=== PATIENT | female | born 1990 | race Caucasian/White ===

== ENCOUNTER 2018-09-07 08:22 | Emergency (ER) | payer SELFPAY ==
[2018-09-07 10:36] LABS: Urine Blood NEGATIVE (NEG); Urine Glucose NEGATIVE (NEG); Urine Protein NEGATIVE (NEG)
--- NOTE | 2018-09-07 10:47 | RAD REPORT ---
EXAM DESCRIPTION: CT - Head Brain Wo Cont - 09/07/2018 10:15 am CLINICAL HISTORY: Migraine headache history, numbness and tingling on the top and back of head COMPARISON: None. TECHNIQUE: Axial 5 mm thick images of the head were obtained without IV contrast. All CT scans are performed using dose optimization technique as appropriate and may include automated exposure control or mA/KV adjustment according to patient size. FINDINGS: No intracranial hemorrhage, mass, edema or shift of mid-line structures. No acute infarcti on changes seen. No abnormal extra-axial fluid collections. Ventricles are normal. Mastoid air cells and visualized portions of the paranasal sinuses are clear. No acute bony findings. IMPRESSION: Negative non-contrast CT head examination.
--- NOTE | 2018-09-07 12:16 | EDPHYS ---
Physician Documentation [facility] Name: Madalyn Aguilar Age: 28 yrs Sex: Female : 1990 Arrival Date: 09/07/2018 Time: 08:25 Bed 23 Private MD: ED Physician Manfred James HPI: 09/07 10:10 This 28 yrs old Female presents to ER via Ambulatory with complaints of Neck pm1 Problem, Dizziness. 10:10 The patient or guardian complains of tenderness, swollen lymph node. pm1 10:10 The symptoms are located on the left lateral aspect of neck. Onset: The pm1 symptoms/episode began/occurred 2 week(s) ago. Context: The problem was sustained at home, The neck injury/problem resulted from Unknown. Associated signs and symptoms: Pertinent positives: headache, Pertinent negatives: chills, fever, nausea, vomiting, weakness. The pain does not radiate. Modifying factors: The symptoms are alleviated by nothing. the symptoms are aggravated by palpation of left lump on neck. history of migraines, left neck lump onset 2 weeks ago. 10:10 No pet exposure. pm1 Historical: - Allergies: 09:11 No Known Allergies; dm5 - Home Meds: 09:11 phentermine 37.5 mg oral cap 1 cap once daily [Active]; omeprazole 20 mg Oral cpDR 1 dm5 cap once daily [Active]; Topamax 50 mg Oral tab 1 tab daily [Active]; - Immunization history:: Flu vaccine is not up to date. - Social history:: Smoking status: Patient/guardian denies using tobacco. - Ebola Screening: : Patient negative for fever greater than or equal to 101.5 degrees Fahrenheit, and additional compatible Ebola Virus Disease symptoms Patient denies exposure to infectious person Patient denies travel to an Ebola-affected area in the 21 days before illness onset No symptoms or risks identified at this time. ROS: 10:10 Constitutional: Negative for fever, chills, and weight loss, Eyes: Negative for injury, pm1 pain, redness, and discharge, ENT: Negative for injury, pain, and discharge. 10:10 Cardiovascular: Negative for chest pain, palpitations, and edema, Respiratory: Negative for shortness of breath, cough, wheezing, and pleuritic chest pain, Abdomen/GI: Negative for abdominal pain, nausea, vomiting, diarrhea, and constipation, Back: Negative for injury and pain, MS/Extremity: Negative for injury and deformity, Skin: Negative for injury, rash, and discoloration. 10:10 Neck: Positive for swollen nodes, Negative for pain with movement, pain at rest, stiffness, tenderness, bony tenderness. 10:10 Neuro: Positive for headache, Negative for numbness, tingling, weakness. Exam: 10:10 Constitutional: This is a well developed, well nourished patient who is awake, alert, pm1 and in no acute distress. Head/Face: Normocephalic, atraumatic. Eyes: Pupils equal round and reactive to light, extra-ocular motions intact. Lids and lashes normal. Conjunctiva and sclera are non-icteric and not injected. Cornea within normal limits. Periorbital areas with no swelling, redness, or edema. ENT: Nares patent. No nasal discharge, no septal abnormalities noted. Tympanic membranes are normal and external auditory canals are clear. Oropharynx with no redness, swelling, or masses, exudates, or evidence of obstruction, uvula midline. Mucous membranes moist. 10:10 Chest/axilla: Normal chest wall appearance and motion. Nontender with no deformity. No lesions are appreciated. Cardiovascular: Regular rate and rhythm with a normal S1 and S2. No gallops, murmurs, or rubs. Normal PMI, no JVD. No pulse deficits. Respiratory: Lungs have equal breath sounds bilaterally, clear to auscultation and percussion. No rales, rhonchi or wheezes noted. No increased work of breathing, no retractions or nasal flaring. Abdomen/GI: Soft, non-tender, with normal bowel sounds. No distension or tympany. No guarding or rebound. No evidence of tenderness throughout. Back: No spinal tenderness. No costovertebral tenderness. Full range of motion. Skin: Warm, dry with normal turgor. Normal color with no rashes, no lesions, and no evidence of cellulitis. MS/ Extremity: Pulses equal, no cyanosis. Neurovascular intact. Full, normal range of motion. Neuro: Awake and alert, GCS 15, oriented to person, place, time, and situation. Cranial nerves II-XII grossly intact. Motor strength 5/5 in all extremities. Sensory grossly intact. Cerebellar exam normal. Normal gait. 10:10 Neck: External neck: is normal, C-spine: appears grossly normal, no vertebral tenderness, no crepitus, ROM/movement: Meningeal signs: Kernig's sign is negative, Brudzinski's sign is negative, nuchal rigidity, is not appreciated, Lymph nodes: lymphadenopathy is appreciated, anterior cervical nodes. Vital Signs: 09:11 BP 148 / 94; Pulse 80; Resp 18; Temp 98.3; Pulse Ox 100% on R/A; Weight 117.93 kg; dm5 Height 5 ft. 4 in. (162.56 cm); Pain 2/10; 10:16 BP 127 / 65; Pulse 84; Resp 16; Pulse Ox 100% on R/A; Pain 2/10; em 09:11 Body Mass Index 44.63 (117.93 kg, 162.56 cm) dm5 MDM: 09:26 Patient medically screened. pm1 12:06 Data reviewed: vital signs. Data interpreted: Pulse oximetry: on room air is 100 %. pm1 Interpretation: normal. Counseling: I had a detailed discussion with the patient and/or guardian regarding: the historical points, exam findings, and any diagnostic results supporting the discharge/admit diagnosis, the need for outpatient follow up, a family practitioner, to return to the emergency department if symptoms worsen or persist or if there are any questions or concerns that arise at home. 09/07 10:09 Order name: Urine Dipstick--Ancillary (enter results); Complete Time: 11:55 eb 09/07 10:09 Order name: Urine --Ancillary (enter results); Complete Time: 11:55 eb 09/07 09:55 Order name: CT Head Brain wo Cont; Complete Time: 11:55 pm1 09/07 09:55 Order name: Urine Dipstick-Ancillary (obtain specimen); Complete Time: 10:12 pm1 09/07 09:55 Order name: Urine Test (obtain specimen); Complete Time: 10:12 pm1 Administered Medications: 12:17 Not Given (Patient Refused): Benadryl 25 mg PO once em 12:17 Not Given (Patient Refused): TORadol 30 mg IVP once em 12:17 Not Given (Patient Refused): Reglan 10 mg IVP once; over 1 to 2 minutes em 12:17 Not Given (Patient Refused): NS 0.9% 1000 ml IV at 1000 ml once em Disposition: 13:56 Co-signature as Attending Physician, Manfred James MD I agree with the assessment and kdr plan of care. Disposition: 09/07/18 12:15 Discharged to Home. Impression: Headache, Localized enlarged lymph nodes - left cervical chain. - Condition is Stable. - Discharge Instructions: Migraine Headache, Lymphadenopathy. - Prescriptions for Keflex 500 mg Oral Capsule - take 1 capsule by ORAL route every 6 hours for 10 days; 40 capsule. - Medication Reconciliation Form, Thank You Letter, Antibiotic Education form. - Follow up: Emergency Department; When: As needed; Reason: Worsening of condition. Follow up: Private Physician; When: 2 - 3 days; Reason: Recheck today's complaints, Continuance of care, Re-evaluation by your physician. - Problem is new. - Symptoms have improved. Signatures: Dispatcher [employer] Penny Casillas, ELVIA RN dm5 Manfred James MD MD [facility] Herve Nielson, STATIONARY FIREMAN STATIONARY FIREMAN em Donavan Cassidy, NODE JS DEVELOPER NODE JS DEVELOPER pm1 Corrections: (The following items were deleted from the chart) 12:19 12:01 IV Saline Lock ordered. pm1 em 12:25 12:15 09/07/2018 12:15 Discharged to Home. Impression: Headache; Localized enlarged em lymph nodes - left cervical chain. Condition is Stable. Forms are Medication Reconciliation Form, Thank You Letter, Antibiotic Education, Prescription Opioid Use. Follow up: Emergency Department; When: As needed; Reason: Worsening of condition. Follow up: Private Physician; When: 2 - 3 days; Reason: Recheck today's complaints, Continuance of care, Re-evaluation by your physician. Problem is new. Symptoms have improved. pm1
--- NOTE | 2018-09-07 12:16 | ER ---
Nurse's Notes [facility] Name: Madalyn Aguilar Age: 28 yrs Sex: Female : 1990 Arrival Date: 09/07/2018 Time: 08:25 Bed 23 Private MD: Diagnosis: Headache;Localized enlarged lymph nodes-left cervical chain Presentation: 09/07 09:07 Presenting complaint: Patient states: "lump on left side of neck" that started 2 weeks dm5 ago. Pt states that she is also having left shoulder pain 2/10 and that she has started to get numbness and tinlgling on the top and back of her head and side of neck. Pt states that her migraine medication has not been working. 09:07 Method Of Arrival: Ambulatory dm5 09:24 Transition of care: patient was not received from another setting of care. Onset of hb symptoms is unknown. Risk Assessment: Do you want to hurt yourself or someone else? Patient reports no desire to harm self or others. Care prior to arrival: None. 09:24 Acuity: JENNIFER 3 hb 10:18 Initial Sepsis Screen: Does the patient meet any 2 criteria? No. Patient's initial em sepsis screen is negative. Does the patient have a suspected source of infection? No. Patient's initial sepsis screen is negative. Historical: - Allergies: 09:11 No Known Allergies; dm5 - Home Meds: 09:11 phentermine 37.5 mg oral cap 1 cap once daily [Active]; omeprazole 20 mg Oral cpDR 1 dm5 cap once daily [Active]; Topamax 50 mg Oral tab 1 tab daily [Active]; - Immunization history:: Flu vaccine is not up to date. - Social history:: Smoking status: Patient/guardian denies using tobacco. - Ebola Screening: : Patient negative for fever greater than or equal to 101.5 degrees Fahrenheit, and additional compatible Ebola Virus Disease symptoms Patient denies exposure to infectious person Patient denies travel to an Ebola-affected area in the 21 days before illness onset No symptoms or risks identified at this time. Screenin:58 Abuse screen: Denies threats or abuse. Nutritional screening: No deficits noted. em Tuberculosis screening: No symptoms or risk factors identified. Fall Risk None identified. Assessment: 10:13 General: Appears in no apparent distress. comfortable, Behavior is calm, cooperative. em Pain: Complains of pain in anterior aspect of left shoulder and posterior aspect of left shoulder Pain currently is 2 out of 10 on a pain scale. Neuro: Level of Consciousness is awake, alert, obeys commands, Oriented to person, place, time, situation, Moves all extremities. Speech is normal, Tingling in anterior aspect of left shoulder and posterior aspect of left shoulder Numbness in anterior aspect of left shoulder and posterior aspect of left shoulder. Cardiovascular: Capillary refill < 3 seconds Patient's skin is warm and dry. Respiratory: Airway is patent Respiratory effort is even, unlabored, Respiratory pattern is regular, symmetrical. GI: Abdomen is obese, Patient currently denies nausea, pain. : No signs and/or symptoms were reported regarding the genitourinary system. EENT: No signs and/or symptoms were reported regarding the EENT system. Derm: Skin is intact, Skin is pink, warm \\T\\ dry. Musculoskeletal: Capillary refill < 3 seconds, Range of motion: intact in all extremities. 10:30 Reassessment: Patient appears in no apparent distress at this time. I agree with above iw assessment by Herve Nielson LVN. 11:00 Reassessment: Patient appears in no apparent distress at this time. Patient and/or em family updated on plan of care and expected duration. Pain level reassessed. Patient is alert, oriented x 3, equal unlabored respirations, skin warm/dry/pink. 12:17 Reassessment: Patient appears in no apparent distress at this time. Patient and/or em family updated on plan of care and expected duration. Pain level reassessed. Patient is alert, oriented x 3, equal unlabored respirations, skin warm/dry/pink. 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 Vital Signs: 09:11 BP 148 / 94; Pulse 80; Resp 18; Temp 98.3; Pulse Ox 100% on R/A; Weight 117.93 kg; dm5 Height 5 ft. 4 in. (162.56 cm); Pain 2/10; 10:16 BP 127 / 65; Pulse 84; Resp 16; Pulse Ox 100% on R/A; Pain 2/10; em 09:11 Body Mass Index 44.63 (117.93 kg, 162.56 cm) dm5 ED Course: 08:25 Patient arrived in ED. as 09:11 Arm band placed on right wrist. dm5 09:23 Donavan Cassidy, MAURICIO is PHCP. pm1 09:23 Manfred James MD is Attending Physician. pm1 09:25 Triage completed. hb 09:52 Herve Nielson LVN is Primary Nurse. em 09:58 Patient has correct armband on for positive identification. Placed in gown. Bed in low em position. Call light in reach. Side rails up X2. 10:15 CT Head Brain wo Cont In Process Unspecified. EDMS 11:00 Pulse ox on. NIBP on. jp3 11:22 Warm blanket given. jp3 12:25 No provider procedures requiring assistance completed. Patient did not have IV access em during this emergency room visit. Administered Medications: 12:17 Not Given (Patient Refused): Benadryl 25 mg PO once em 12:17 Not Given (Patient Refused): TORadol 30 mg IVP once em 12:17 Not Given (Patient Refused): Reglan 10 mg IVP once; over 1 to 2 minutes em 12:17 Not Given (Patient Refused): NS 0.9% 1000 ml IV at 1000 ml once em Outcome: 12:15 Discharge ordered by . pm1 12:25 Discharged to home ambulatory. em 12:25 Condition: good 12:25 Discharge instructions given to patient, Instructed on discharge instructions, follow up and referral plans. medication usage, Demonstrated understanding of instructions, follow-up care, medications, Prescriptions given X 1. 12:25 Patient left the ED. em Signatures: Dispatcher [employer] REBECADE Penny Reddy, ELVIA GAN 5 Herve Nielson LVN SQL REPORT ANALYST em María Ramsey Irene, ELVIA GAN Donavan Cassidy, MAURICIO TRACTOR DRIVER TEAMSTER pm1 Jeanette Jenkins RN RN Riley Onofre jp3
[2018-09-07] MEDS ORDERED: NA CHLORIDE 0.9% 0 ML ONE (12:17)
[2018-09-07] MEDS ORDERED: DIPHENHYDRAMINE 25 MG TAB/CAP ONE (12:17)
[2018-09-07] MEDS ORDERED: METOCLOPRAMIDE 10 MG/2mL INJ ONE (12:17)
== END 2018-09-07 12:25 | disposition home or self-care (01) ==
LOC: ER 08:22
DX: R51 Headache (principal)
CPT/HCPCS: 70450; 81003; 81025; 99283; J2765; J7030

== ENCOUNTER 2019-06-12 09:44 | Emergency (ER) | payer OTHER, SELFPAY ==
[2019-06-12] MEDS ORDERED: NA CHLORIDE 0.9% 1,000 ML ONE (11:24)
[2019-06-12 11:46] LABS: Absolute Lymphocytes (CBC) 1.5 K/uL (0.7-4.9); Basophils % 0.6 % (0-1.3); Hematocrit 39.5 % (36.0-45.0); Lymphocytes % 22.1 % (15.3-44.8); RBC Red Blood Cell Count 4.87 M/uL (3.86-4.86)
[2019-06-12 12:12] LABS: ALT/SGPT 17 U/L (12-78); AST/SGOT 10 U/L (15-37); Albumin 3.6 g/dL (3.4-5.0); Alkaline Phosphatase 74 U/L (45-117); BUN Blood Urea Nitrogen 9 mg/dL (7-18); Bicarbonate 22 mmol/L (21-32); Bilirubin Direct < 0.1 mg/dL (0-0.2); Bilirubin Total 0.2 mg/dL (0.2-1.0); Glucose Level 92 mg/dL (74-106); Lipase 150 U/L (73-393); Protein, Total 7.1 g/dL (6.4-8.2); Sodium Level 142 mmol/L (136-145)
--- NOTE | 2019-06-12 12:24 | ER ---
Nurse's Notes [facility] Name: Madalyn Aguilar Age: 29 yrs Sex: Female : 1990 Arrival Date: 06/12/2019 Time: 09:49 Bed 24 Private MD: None, None Diagnosis: Abdominal tenderness;Obesity, unspecified;Low back pain Presentation: 06/12 09:58 Presenting complaint: Patient states: i have an abdominal hernia and its been hurting hj non stop and its getting worse and im getting back pains too; reports nausea; reports diarrhea today;. Transition of care: patient was not received from another setting of care. Onset of symptoms was June 12, 2019. Risk Assessment: Do you want to hurt yourself or someone else? Patient reports no desire to harm self or others. Initial Sepsis Screen: Does the patient meet any 2 criteria? No. Patient's initial sepsis screen is negative. Does the patient have a suspected source of infection? No. Patient's initial sepsis screen is negative. Care prior to arrival: None. 09:58 Method Of Arrival: Ambulatory 09:58 Acuity: JENNIFER 3 hj Historical: - Allergies: 10:00 No Known Allergies; hj - PMHx: 10:00 None; hj - PSHx: 10:00 ; Tonsillectomy; Adenoids; hj - Immunization history:: Adult Immunizations up to date. - Social history:: Smoking status: unknown. - Family history:: not pertinent. - Ebola Screening: : Patient denies travel to an Ebola-affected area in the 21 days before illness onset. Screenin:15 Abuse screen: Denies threats or abuse. Denies injuries from another. Nutritional aj1 screening: No deficits noted. Tuberculosis screening: No symptoms or risk factors identified. 14:08 Fall Risk None identified. aj1 Assessment: 10:15 General: Appears in no apparent distress. uncomfortable, Behavior is calm, cooperative, aj1 appropriate for age. Pain: Complains of pain in right upper quadrant and left upper quadrant Pain radiates to back, right lower quadrant and left lower quadrant Pain currently is 6 out of 10 on a pain scale. Quality of pain is described as sharp. Neuro: Level of Consciousness is awake, alert, obeys commands. Cardiovascular: Patient's skin is warm and dry. Respiratory: Airway is patent Respiratory effort is even, unlabored, Respiratory pattern is regular, symmetrical. GI: Abdomen is non-distended, Bowel sounds present X 4 quads. Abd is soft X 4 quads Abdomen is tender to palpation in epigastric area. GI: Reports diarrhea, nausea, Patient currently denies vomiting. : No signs and/or symptoms were reported regarding the genitourinary system. EENT: No signs and/or symptoms were reported regarding the EENT system. Musculoskeletal: No signs and/or symptoms reported regarding the musculoskeletal system. Circulation, motion, and sensation intact. 11:15 Reassessment: Patient appears in no apparent distress at this time. No changes from aj1 previously documented assessment. Patient and/or family updated on plan of care and expected duration. Pain level reassessed. Patient is alert, oriented x 3, equal unlabored respirations, skin warm/dry/pink. 12:15 Reassessment: Patient appears in no apparent distress at this time. No changes from aj1 previously documented assessment. Patient and/or family updated on plan of care and expected duration. Pain level reassessed. Patient is alert, oriented x 3, equal unlabored respirations, skin warm/dry/pink. 13:01 Reassessment: Patient discharge pending serum results per Dr. Werner. aj1 13:22 Reassessment: Discharge pending abdominal X-Ray results per Dr. Wrener. aj1 14:07 Reassessment: Patient appears in no apparent distress at this time. No changes from aj1 previously documented assessment. Patient and/or family updated on plan of care and expected duration. Pain level reassessed. Patient is alert, oriented x 3, equal unlabored respirations, skin warm/dry/pink. 14:07 Reassessment: Okay to discharge patient per Dr. Werner. aj1 Vital Signs: 10:00 BP 126 / 63; Pulse 79; Resp 18; Temp 97.3(TE); Pulse Ox 98% on R/A; Weight 111.13 kg; hj Height 5 ft. 4 in. (162.56 cm); Pain 6/10; 11:45 BP 110 / 65; Pulse 65; Resp 16; Pulse Ox 100% on R/A; aj1 12:45 BP 106 / 60; Pulse 66; Resp 18; Pulse Ox 100% on R/A; aj1 10:00 Body Mass Index 42.05 (111.13 kg, 162.56 cm) ED Course: 09:49 Patient arrived in ED. dp 09:50 None, None is Private Physician. dp 09:59 Triage completed. hj 10:01 Arm band placed on left wrist. hj 10:11 Yoselin Gill, RN is Primary Nurse. aj1 10:38 Temo Werner MD is Attending Physician. tiffanie 11:00 Placed in gown. Bed in low position. Call light in reach. Side rails up X 1. Side rails jp3 up X2. Warm blanket given. Verbal reassurance given. Pulse ox on. NIBP on. 11:25 Urine collected: S.[place] is below cut-off for a valid test. Patient jp3 maintains SpO2 saturation greater than 95% on room air. 11:35 Initial lab(s) drawn, by me, sent to lab. Inserted saline lock: 20 gauge in right jp3 antecubital area, using aseptic technique. Blood collected. 11:39 Urine Culture Sent. jp3 11:39 Basic Metabolic Panel Sent. jp3 11:39 CBC with Diff Sent. jp3 11:39 Creatinine for Radiology Sent. jp3 11:39 Hepatic Function Sent. jp3 11:39 Lipase Sent. jp3 11:56 Radiology exam delayed due to test not completed at this time. 12:10 Initial lab(s) drawn, by me, sent to lab. jp3 12:12 Test, Serum Sent. jp3 12:24 Raf Rogers MD is Referral Physician. [facility] 12:45 Radiology exam delayed due to test not completed at this time. 13:51 Abdomen Acute Series XRAY In Process Unspecified. EDMS 14:08 No provider procedures requiring assistance completed. IV discontinued, intact, aj1 bleeding controlled, No redness/swelling at site. Pressure dressing applied. Administered Medications: 11:44 Drug: NS 0.9% 1000 ml Route: IV; Rate: 1 bolus; Site: right antecubital; aj1 13:00 Follow up: IV Status: Completed infusion; IV Intake: 1000ml aj1 Intake: 13:00 IV: 1000ml; Total: 1000ml. aj1 Outcome: 12:24 Discharge ordered by . tiffanie 14:08 Discharged to home ambulatory. aj1 14:08 Condition: good 14:08 Discharge instructions given to patient, Instructed on discharge instructions, follow up and referral plans. medication usage, Demonstrated understanding of instructions, follow-up care, medications, Prescriptions given X 3. 14:10 Patient left the ED. aj1 Signatures: Dispatcher [employer] EDYoselin Myrick, ELVIA RN aj1 Temo Werner MD MD cha Warren, Shannon sw Joaquin, Henry, RN RN hj Pisarski, Jacob jp3 Martin Silverio Corrections: (The following items were deleted from the chart) 10:01 10:00 Pulse 79bpm; Resp 18bpm; Pulse Ox 98% RA; Temp 97.3F Temporal; 111.13 kg; Height hj 5 ft. 4 in.; BMI: 42.0; Pain 6/10; hj 11:41 11:25 Urine collected: clean catch specimen, clear, sharmin colored, minesh3 jp3 12:29 09:58 Presenting complaint: Patient states: i have a hernia and its been hurting non hj stop and its getting worse and im getting back pains too; reports nausea; reports diarrhea today; hj
--- NOTE | 2019-06-12 12:25 | EDPHYS ---
Physician Documentation [facility] Name: Madalyn Aguilar Age: 29 yrs Sex: Female : 1990 Arrival Date: 06/12/2019 Time: 09:49 Bed 24 Private MD: None, None ED Physician Temo Werner HPI: 06/12 11:42 This 29 yrs old Female presents to ER via Ambulatory with complaints of Back tiffanie Pain, Abdominal Cramping. 11:42 The patient presents with pain that is acute, with no known mechanism of injury. The tiffanie symptoms are located in the lumbar area. 11:42 The patient presents with abdominal pain in the upper abdomen. Onset: The tiffanie symptoms/episode began/occurred 2 day(s) ago. Onset: The symptoms/episode began/occurred 2 day(s) ago. The pain does not radiate. Associated signs and symptoms: The patient has no apparent associated signs or symptoms. Historical: - Allergies: 10:00 No Known Allergies; hj - PMHx: 10:00 None; hj - PSHx: 10:00 ; Tonsillectomy; Adenoids; hj - Immunization history:: Adult Immunizations up to date. - Social history:: Smoking status: unknown. - Family history:: not pertinent. - Ebola Screening: : Patient denies travel to an Ebola-affected area in the 21 days before illness onset. ROS: 11:42 Constitutional: Negative for fever, chills, and weight loss, Eyes: Negative for injury, tiffanie pain, redness, and discharge, ENT: Negative for injury, pain, and discharge, Neck: Negative for injury, pain, and swelling, Cardiovascular: Negative for chest pain, palpitations, and edema, Respiratory: Negative for shortness of breath, cough, wheezing, and pleuritic chest pain, Back: Negative for injury and pain, : Negative for injury, bleeding, discharge, and swelling, MS/Extremity: Negative for injury and deformity, Skin: Negative for injury, rash, and discoloration, Neuro: Negative for headache, weakness, numbness, tingling, and seizure, Psych: Negative for depression, anxiety, suicide ideation, homicidal ideation, and hallucinations, Allergy/Immunology: Negative for hives, rash, and allergies, Endocrine: Negative for neck swelling, polydipsia, polyuria, polyphagia, and marked weight changes, Hematologic/Lymphatic: Negative for swollen nodes, abnormal bleeding, and unusual bruising. 11:42 Abdomen/GI: Positive for abdominal pain, of the right upper quadrant, left upper quadrant, right lower quadrant and left lower quadrant. Exam: 11:42 Constitutional: This is a well developed, well nourished patient who is awake, alert, tiffanie and in no acute distress. Head/Face: Normocephalic, atraumatic. Eyes: Pupils equal round and reactive to light, extra-ocular motions intact. Lids and lashes normal. Conjunctiva and sclera are non-icteric and not injected. Cornea within normal limits. Periorbital areas with no swelling, redness, or edema. ENT: Nares patent. No nasal discharge, no septal abnormalities noted. Tympanic membranes are normal and external auditory canals are clear. Oropharynx with no redness, swelling, or masses, exudates, or evidence of obstruction, uvula midline. Mucous membranes moist. Neck: Trachea midline, no thyromegaly or masses palpated, and no cervical lymphadenopathy. Supple, full range of motion without nuchal rigidity, or vertebral point tenderness. No Meningismus. Chest/axilla: Normal chest wall appearance and motion. Nontender with no deformity. No lesions are appreciated. Cardiovascular: Regular rate and rhythm with a normal S1 and S2. No gallops, murmurs, or rubs. Normal PMI, no JVD. No pulse deficits. Respiratory: Lungs have equal breath sounds bilaterally, clear to auscultation and percussion. No rales, rhonchi or wheezes noted. No increased work of breathing, no retractions or nasal flaring. Back: No spinal tenderness. No costovertebral tenderness. Full range of motion. Skin: Warm, dry with normal turgor. Normal color with no rashes, no lesions, and no evidence of cellulitis. MS/ Extremity: Pulses equal, no cyanosis. Neurovascular intact. Full, normal range of motion. Neuro: Awake and alert, GCS 15, oriented to person, place, time, and situation. Cranial nerves II-XII grossly intact. Motor strength 5/5 in all extremities. Sensory grossly intact. Cerebellar exam normal. Normal gait. Psych: Awake, alert, with orientation to person, place and time. Behavior, mood, and affect are within normal limits. 11:42 Abdomen/GI: Inspection: distension, obese Bowel sounds: normal, Palpation: mild abdominal tenderness, in all quadrants, Liver: no appreciated palpable abnormalities, Hernia: not appreciated. Vital Signs: 10:00 BP 126 / 63; Pulse 79; Resp 18; Temp 97.3(TE); Pulse Ox 98% on R/A; Weight 111.13 kg; hj Height 5 ft. 4 in. (162.56 cm); Pain 6/10; 11:45 BP 110 / 65; Pulse 65; Resp 16; Pulse Ox 100% on R/A; aj1 12:45 BP 106 / 60; Pulse 66; Resp 18; Pulse Ox 100% on R/A; aj1 10:00 Body Mass Index 42.05 (111.13 kg, 162.56 cm) hj MDM: 10:38 Patient medically screened. [facility] 11:44 Data reviewed: vital signs, nurses notes, lab test result(s). [facility] 06/12 10:55 Order name: Basic Metabolic Panel; Complete Time: 12:22 [facility] 06/12 10:55 Order name: CBC with Diff; Complete Time: 12:22 [facility] 06/12 10:55 Order name: Creatinine for Radiology; Complete Time: 12:22 [facility] 06/12 10:55 Order name: Hepatic Function; Complete Time: 12:22 [facility] 06/12 10:55 Order name: Lipase; Complete Time: 12:22 [facility] 06/12 10:55 Order name: Urine Culture [facility] 06/12 10:55 Order name: IV Saline Lock; Complete Time: 11:39 [facility] 06/12 10:55 Order name: Labs collected and sent; Complete Time: 11:39 [facility] 06/12 10:55 Order name: Urine Dipstick-Ancillary (obtain specimen); Complete Time: 11:39 [facility] 06/12 10:55 Order name: Urine Test (obtain specimen); Complete Time: 11:39 [facility] 06/12 11:39 Order name: Urine Dipstick--Ancillary (enter results); Complete Time: 12:54 06/12 11:42 Order name: Test, Serum; Complete Time: 12:54 06/12 11:45 Order name: Abdomen Acute Series XRAY tiffanie Administered Medications: 11:44 Drug: NS 0.9% 1000 ml Route: IV; Rate: 1 bolus; Site: right antecubital; aj1 13:00 Follow up: IV Status: Completed infusion; IV Intake: 1000ml aj1 Disposition: 06/12/19 12:24 Discharged to Home. Impression: Abdominal tenderness, Obesity, unspecified, Low back pain. - Condition is Stable. - Discharge Instructions: Abdominal Pain, Adult, Back Pain, Adult, Musculoskeletal Pain, Back Injury Prevention, [id number], Abdominal Pain, Adult, [id number], Back Pain, Adult, [id number]. - Prescriptions for Bentyl 20 mg Oral Tablet - take 1 tablet by ORAL route every 6 hours As needed; 20 tablet. Pepcid 20 mg Oral Tablet - take 1 tablet by ORAL route every 12 hours for 10 days; 20 tablet. Zofran 4 mg Oral Tablet - take 1 tablet by ORAL route every 12 hours As needed; 20 tablet. - Medication Reconciliation Form, Thank You Letter, Antibiotic Education, Prescription Opioid Use form. - Follow up: Private Physician; When: 2 - 3 days; Reason: Recheck today's complaints, Continuance of care, Re-evaluation by your physician. Follow up: Raf Rogers; When: 2 - 3 days; Reason: Recheck today's complaints, Continuance of care, Re-evaluation by your physician. - Problem is new. - Symptoms have improved. Signatures: Dispatcher [employer] EDMS Yoselin Gill RN RN aj1 Temo Werner MD MD cha Joaquin, Henry, RN RN hj Corrections: (The following items were deleted from the chart) 14:10 12:24 06/12/2019 12:24 Discharged to Home. Impression: Abdominal tenderness; Obesity, aj1 unspecified; Low back pain. Condition is Stable. Discharge Instructions: Abdominal Pain, Adult, Back Pain, Adult, Musculoskeletal Pain, Back Injury Prevention, [id number], Abdominal Pain, Adult, [id number], Back Pain, Adult, [id number]. Prescriptions for Bentyl 20 mg Oral Tablet - take 1 tablet by ORAL route every 6 hours As needed; 20 tablet, Pepcid 20 mg Oral Tablet - take 1 tablet by ORAL route every 12 hours for 10 days; 20 tablet, Zofran 4 mg Oral Tablet - take 1 tablet by ORAL route every 12 hours As needed; 20 tablet. and Forms are Medication Reconciliation Form, Thank You Letter, Antibiotic Education, Prescription Opioid Use. Follow up: Private Physician; When: 2 - 3 days; Reason: Recheck today's complaints, Continuance of care, Re-evaluation by your physician. Follow up: Raf Rogers; When: 2 - 3 days; Reason: Recheck today's complaints, Continuance of care, Re-evaluation by your physician. Problem is new. Symptoms have improved. tiffanie
[2019-06-12 12:29] LABS: Urine Blood NEGATIVE (NEG); Urine Glucose NEGATIVE (NEG); Urine Protein NEGATIVE (NEG); Urine Specific Gravity <1.005 (1.005-1.030)
--- NOTE | 2019-06-12 14:23 | RAD REPORT ---
EXAM DESCRIPTION: RAD - Abdomen Acute Series - 06/12/2019 1:50 pm CLINICAL HISTORY: Abdominal pain COMPARISON: None. FINDINGS: Lungs are clear. Heart size and pulmonary vasculature are normal. No pleural effusion, pne umothorax or other acute cardiopulmonary process seen. Bowel gas pattern is nonspecific. No bowel obstruction, free air or other acute findings. No suspicio us calcifications. No hernia changes evident on plain film. No other suspicious for significant findings. IMPRESSION: Negative acute abdomen series.
== END 2019-06-12 14:10 | disposition home or self-care (01) ==
LOC: ER 09:44
DX: M54.5 Low back pain (principal); R10.10 Upper abdominal pain, unspecified; E66.9 Obesity, unspecified; Z68.41 Body mass index [BMI] 40.0-44.9, adult
CPT/HCPCS: 36415; 74022; 80048; 80076; 81003; 83690; 84703; 85025; 87077; 87086; 87088; 87186; 96360; 99284; J7030